=== PATIENT | male | born 1985 | race Caucasian/White ===

== ENCOUNTER 2024-05-29 09:09 | Outpatient (CLI) | payer OTHER ==
--- NOTE | 2024-05-29 10:06 | Sleep Patient Instructions ---
Sleep Center Visit Summary - Patient Visit Information Reason for Visit: Initial consultation - Patient Instructions Additional Instructions: You will continue with CPAP therapy with pressure set at 8-13 cmH2O. A supply prescription will be updated with your DME. I have added an order to update your PAP machine. Please call the office to schedule a compliance follow up once you get your new device. We encourage you to continue to try to lose weight. Please follow up with the sleep care office one month after obtaining new device. - Clinic Information Contact: [facility] [address] [place] [address] [email or web address] T: [phone]
--- NOTE | 2024-05-29 10:13 | SLEEP CARE CONSULTATION ---
Information from patient questionnaire entered by Jah Zhao. I have reviewed and concur with the information entered by Jah Zhao. This document represents the service I personally performed and the decisions made by me, Chela Mcallister ARNP. History of Present Illness Service Date and Time: 05/29/2024 0909 Reason for Visit: New patient, Previously diagnosed sleep apnea, sleep apnea on CPAP therapy Chief Complaint: reports: Unrefreshed sleep, Snoring, Excessive daytime sleepiness, Observed pauses in breathing, Other ( UPDTE SUPPLIES, SNORES THROUGH MASK) Date of Onset: 2014 Usual bedtime: 5944-2326 Time it takes to fall asleep: RIGHT AWAY OR MORE THAN 15 MIN IF ON PHONE Snores at night: Yes Observed to quit breathing while asleep: Yes Sleeps alone due to snoring: No Number of times waking at night: 3+ Reasons for waking at night: reports: Snoring, Bathroom, Other ( MASK GETS HOT AND WET, NOISE FROM HOSE DUE TO WATER IN HOSE) Toss, Turn, or Twitch while sleeping: Yes Recalls having dreams: No Usually gets out of bed at: 5311-5481 Feels refreshed in the morning: No Morning headache: No Sleepy or fatigued during the day: Yes Ever fallen asleep while driving: Yes Takes day naps: Yes Dreams during day naps: Yes Prior sleep studies: Yes Additional HPI information: IVORY ALMAZAN was previously diagnosed in HST sleep study dated 08/29/2019 through the [facility] to have mild, AHI 5.8, obstructive sleep apnea-hypopnea syndrome and comes in today to establish care for CPAP therapy. - Parasomnia Symptoms Ever been unable to move upon waking from sleep: No Walks in sleep: No Talks in sleep: No Ever acted out dreams in sleep: No Ever felt weak in the knees when startled or emotional: Yes Bothered by creepy, crawly, restless sensations in legs: Yes Problems with memory or concentration: Yes CPAP Compliance Data - Data Reviewed with Patient Average duration of nightly device use: 5 hours 55 minutes Compliance rate %: 82 (86/90 days used; 02/29/24-05/28/24) Current pressure setting (cmH2O): 8-13 Average residual AHI: 1.4 Central apnea: 0.1 Obstructive apnea: 0.7 Hypopnea: 0.6 Average large leak: 0.6 L/min Compliance data discussion: He is using [employer] for his CPAP supplies. He has an Airsense 10 CPAP that was set up in 2017. He is using a full face Resmed AirFit F20 mask. Subjective Patient concerns: reports: mask discomfort (pressure from mask on top of nose), condensation in mask/hose (face get hot and wet/droplets in hose). denies: aerophagia, air blowing in eyes, mask leak noise, nasal congestion, dry mouth, nose, throat, epistaxis Observed to snore while using device: Yes (sometimes according to ) Current pressure setting perceived as: comfortable On therapy, patient: reports: sleeping better, awakening more refreshed, being more awake and alert during the day, more rested overall. denies: drowsiness while driving Initial [place] Sleepiness Scale score: 19 (05/29/24) Past Medical History Past Medical History: reports: Claustrophobia, Anxiety, Impotence, Depression, Mood disorder (PTSD), GERD Social History The patient's occupation is a [employer]. Patient is and lives in . Have you smoked in the past 12 months: No Cigarettes per day (20/pack): 5 Years of smokin Quit date: 2016 Smoking Pack Years: 0.8 Alcohol use: No Caffeine use: Yes Caffeine amount and frequency: 2-3 12OZ OR 1-2 20OZ A DAY Family History Family history of sleep disordered breathing: Yes Family Hx Sleep Apnea: Mother: Snoring, Sleep apnea - Untreated, Father: Snoring, Sleep apnea - Treated Allergies and Home Medications Known drug allergies: Yes ( LISTED) Drug allergies reviewed: Yes Home medication list reviewed: Yes (as listed) Allergy and home medication list: Allergies Sulfa (Sulfonamide Antibiotics) Allergy (Verified 05/29/24 09:16) Home Medications Cetirizine [ZyrTEC] See Rx Instructions .ROUTE .COMPLEX 05/29/24 [History] Review of Systems Weight gain over past 5 years: 31 Cardiovascular: denies: high blood pressure Gastrointestinal: reports: heartburn Neurological: reports: headaches, head trauma, disorientation, gait or balance problems Psychiatric: reports: Attention Deficit Hyperactivity, anxiety, depression, mood disorder, claustrophobia Ear/Nose/Throat: reports: nasal congestion, sinus problems, dry mouth/throat, hoarseness, wisdom teeth removed (JUST 1). denies: tonsillectomy Endocrine: reports: sluggishness, too hot or cold, excessive thirst, increased appetite Musculoskeletal: reports: joint pain Immunologic: reports: sneezing, allergies to food or environment Physical Exam Vital signs obtained and entered by: JAH Palmer MA Blood Pressure: 120/74 (LEFT ARM) Cuff size: regular Heart Rate: 78 O2 Saturation: 98 Height: 5 ft 9.75 in Weight: 215 lb 9.6 oz (IN UNIFORM) Body Mass Index: 31.1 BMI Classification: Obese Neck circumference: 17.5 Heart: regular rate and rhythm Lungs: clear bilaterally Impression and Plan 1. Obstructive Sleep Apnea-Hypopnea Syndrome, mild, with good treatment compliance and good apnea control. On CPAP therapy, the patient has better sleep quality and is more rested overall. He has a ResMed Airsense 10 that was received in 2017. The patients CPAP is over 5 years old and of reasonable use. Thus, the CPAP will be updated. A DWO prescription will be made. Compliance guidelines for new device and follow up discussed. Patient's apnea severity and rationale for treatment to reduce apnea, improve sleep quality and reduce cardiovascular and cerebrovascular events was reviewed. I also reviewed the benefit of consistent device use of CPAP for gastric reflux, depression/anxiety, PTSD. 2. Obesity, unspecified. Currently patients BMI is 31.1. Obesity increases the risk of apnea, CPAP pressure requirements and overall health risks especially cardiovascular and diabetes. Thus patient is advised to lose weight. * Continue auto CPAP pressure at 8-13 cmH2O * Mask fitting for full face mask, like to try hybrid style * Update machine * Update supply prescription * Notify me if snoring with mask or feeling that the pressure is too much or too little * Attempt to lose weight * Call this office if any problems using CPAP * Return for follow up one month after obtaining new CPAP, or sooner if concerns arise Continue with device pressure at (cmH2O): 8-13 Counseling Topics: Spare mask, Weight loss health impact Prescriptions: Auto CPAP, Device supplies Visit Type: In Office Time Spent with Patient (minutes): 36 Provider Statement: I spent 100% of the Face to Face Visit with the patient with greater than 50% spent counseling the patient and coordination of care.
[2024-05-29 10:17] VITALS: BP 120/74; O2SAT 98
== END 2024-05-29 09:10 | disposition home or self-care (01) ==
LOC: SC 09:09
PROVIDERS: ATTEND Nurse Practitioner Family
DX: G47.33 Obstructive sleep apnea (adult) (pediatric) (principal); E66.9 Obesity, unspecified; Z68.31 Body mass index [BMI] 31.0-31.9, adult; Z87.891 Personal history of nicotine dependence
CPT/HCPCS: 99203; 99212